=== PATIENT | female | born 1965 | race Caucasian/White ===

== ENCOUNTER 2024-07-07 15:33 | Inpatient (IN) | payer MEDICARE, MEDICAID, SELFPAY ==
[2024-07-07] VITALS (8 sets, daily range): BP systolic 125–193; BP diastolic 89–120; PULSE 71–89; RESP 18–158; TEMP 36.8–37.2; O2SAT 94–100
--- NOTE | 2024-07-07 15:55 | PC.NURSE ---
[place] FROM HOME, PER CAREGIVER PT IS ALTERED, LKW WAS 0900 THIS MORNING. FAMILY NOTICED FOUL SMELLING URINE YESTERDAY. EMS RULED OUT STROKE ON SCENE. HERE UPON ASSESSMENT, PT IS ALERT TO SELF ONLY, ABLE TO FOLLOW COMMANDS HAS EQUAL STRENGTH IN ALL FOUR EXTREMITIES. DURING TRIAGE ASSESSMENT PT BEGAN VOMITING. DENIES ANY PAIN CURRENTLY, POOR HISTORIAN. UNSURE WHY SHE IS HERE. AWAITING PROVIDER EVALUATION
--- NOTE | 2024-07-07 16:12 | EKG_ITS ---
[facility] Test Date: 2024-07-07 Pat Name: SOLOMON CLOUD Department: Room: - Gender: Female Vocational Training Instructor: : [id number] Requested By: Saundra De Dios Order Number: [id number] Reading MD: Saundra De Dios Measurements Intervals [place] Rate: 65 P: 50 MN: 137 QRS: 4 QRSD: 82 T: 42 QT: 421 QTc: 440 Interpretive Statements SINUS RHYTHM Compared to ECG 08/19/2021 12:26:59 T-wave abnormality no longer present /store/S0/[id number].pdf
--- NOTE | 2024-07-07 16:13 | XR_ITS ---
Examination: AP chest single view Technique: AP portable semiupright chest single view Exam date and time: July 07, 2024 at 1624 hrs. Comparison October 19, 2021 Indications: Difficulty breathing today. Findings: Opacity in the left base retrocardiac Right lung clear Mild prominence left ventricle Impression: Recommend lateral chest view follow-up to exclude pneumonia left base
--- NOTE | 2024-07-07 16:13 | XR_ITS ---
Examination: CT brain head without contrast. 2-D sagittal coronal reconstructions Date and time of exam:July 07, 2024 at 1812 hours Comparison December 03, 2021 INDICATIONS: Altered mental status today CTDI: vol (mGy):21.4 DLP: (mGycm):1005 Technique: Multiple CT axial sections of the brain have been obtained, 5 mm slice thickness. Contrast has not been administered. 2-D sagittal, coronal reconstructions have been obtained Low dose protocols were performed. One or more of the following dose reduction techniques were used; automated exposure control, adjustment of the mA and/or KV according to patient size, use of iterative reconstruction technique. Findings: Compared to December 03, 2021, again noted ventricular enlargement, asymmetric with the dilatation of the right occipital horn and encephalomalacia in the right occipital lobe No interval hemorrhage or mass effect Probable sebaceous cyst in the scalp on the left side posteriorly No cranial vault fracture IMPRESSION: No interval hemorrhage mass effect or midline shift As clinically warranted, repeat brain MRI follow-up would best assess for acute ischemic change
--- NOTE | 2024-07-07 16:14 | PD.EDAMS ---
Altered Mental Status RME/HPI General Chief Complaint: Altered Mental Status Stated Complaint: AMS Time Seen by Provider: 07/07/24 15:45 Arrival date/time: 07/07/24 15:33 RME / HPI RME / HPI narrative: 58-year-old female patient with significant history of hypertension hypothyroidism, was brought in by EMS for evaluation regarding altered mental status. Last well-known time was last night about 5 PM, when the licensed insurance sales agent arrived around 9 AM, today, patient was noted to be vomiting all over her bed and confused. Patient's been complaining of abdominal pain for the last 2 days. Patient normally ambulates with a walker. No fever was noted. On my initial evaluation patient is only alert to herself. Patient denies any other complaints no medication was taken prior to arrival. Related Data Home Medications ?Medication ?Instructions ?Recorded ?Confirmed atorvastatin 20 mg tablet 20 tab PO QDAY 08/19/21 10/05/21 calcium 600 mg (as 1 tab PO QDAY 08/19/21 10/05/21 carbonate)-vitamin D3 5 mcg (200 unit) tablet citalopram 40 mg tablet 40 tab PO QDAY 08/19/21 10/05/21 docusate sodium 100 mg capsule 1 cap PO QDAY 08/19/21 10/05/21 levothyroxine 88 mcg tablet 88 tab PO QDAY 08/19/21 10/05/21 loratadine 10 mg tablet 10 tab PO QDAY 08/19/21 10/05/21 oxybutynin chloride 5 mg tablet 5 tab PO BID 08/19/21 10/05/21 ergocalciferol (vitamin D2) 1,250 1 cap PO QWEEK 10/05/21 10/05/21 mcg (50,000 unit) capsule Allergies Allergy/AdvReac Type Severity Reaction Status Date / Time No Known Allergies Allergy Verified 07/07/24 15:53 Review of Systems Review of Systems ROS Unobtainable: unobtainable due to mental status ED Exam Narrative Physical exam: VITAL SIGNS: Reviewed. GENERAL APPEARANCE: Alert and oriented x 1 follows commands, no acute distress, HEAD AND FACE: Non-traumatic. ENT: PERRL, pink conjunctivitis, eyelid no trauma, Mucous membrane moist. NECK: Supple, nontender, no nuchal rigidity. CHEST: No tenderness, no crepitus, no paradoxical movement, no retractions. LUNGS: Clear, well ventilated, symmetric, no rales, no wheezing, no ronchi, no stridor, good breath sounds bilaterally. HEART: Regular rate, regular rhythm, no murmur, no gallops. ABDOMEN: Soft, positive bowel sounds, nondistended, no guarding, nontender, no rebound, no masses, RECTAL: Deferred. GENITAL: Deferred. NEUROLOGICAL: Gross motor function intact sensory function intact, Appropriate for age. MUSCULOSKELETAL: low back nontender, full range of motion. EXTREMITIES: Nontender, full range of motion. SKIN: Color pink, dry, no rash, no lacerations, no abrasions, no contusions. LYMPHATICS: Deferred. Course Quality Measures none Orders Category Date Time Status Admit to Inpatient Status Routine Admission 07/07/24 20:32 Active COVID-19 Screening Questionnaire NOW Care 07/07/24 19:26 Active Business Dean STAT Care 07/07/24 16:12 Active Continuous Pulse Oximetry STAT Care 07/07/24 16:12 Completed Decision to Admit X1 Care 07/07/24 19:26 Active EKG (ED ONLY) *Do not use* NOW Care 07/07/24 16:12 Completed In and Out Catheter X1PRN Care 07/07/24 16:12 Active Insert IV NOW Care 07/07/24 16:12 Active NPO STAT Care 07/07/24 16:12 Active Strict Intake and Output Routine Care 07/07/24 16:[address] abdomen pelvis wo con Stat Exams 07/07/24 17:[address] head/brain wo con Stat Exams 07/07/24 16:13 Completed EKG (ED Only) Stat Exams 07/07/24 16:12 Draft XR chest 1V SEPSIS PROTOCOL Stat Exams 07/07/24 16:13 Completed ABG [Arterial Blood Gas] Stat Lab 07/07/24 19:55 Completed Ammonia Stat Lab 07/07/24 20:02 Completed B-Type Natriuretic Peptide Stat Lab 07/07/24 16:37 Completed Blood Culture (Lab) Stat Lab 07/07/24 16:39 Received CBC Stat Lab 07/07/24 16:37 Completed Comprehensive Metabolic Panel Stat Lab 07/07/24 16:37 Completed Drug Screen,Urine Stat Lab 07/07/24 20:20 Completed Folate Stat Lab 07/07/24 20:34 Received Free T4 (Free Thyroxine) Stat Lab 07/07/24 20:02 Completed LDH (Lactate Dehydrogenase) Stat Lab 07/07/24 16:37 Completed Lactate (Lactic Acid) Stat Lab 07/07/24 16:37 Completed Lipase Stat Lab 07/07/24 16:37 Completed Magnesium Stat Lab 07/07/24 16:37 Completed Partial Thromboplastin Time Stat Lab 07/07/24 16:37 Completed Phosphorous Stat Lab 07/07/24 16:37 Completed Procalcitonin Stat Lab 07/07/24 16:37 Completed Prothrombin Time with INR Stat Lab 07/07/24 16:37 Completed TSH [Thyroid Stimulating Hormone] Stat Lab 07/07/24 20:02 Completed Troponin I Stat Lab 07/07/24 16:37 Completed Urinalysis Stat Lab 07/07/24 20:20 Completed Urine Culture Stat Lab 07/07/24 20:20 Received Vitamin B12 Stat Lab 07/07/24 20:34 Received LORazepam [Ativan Inj] Med 07/07/24 17:31 Discontinued 2 mg IVP X1 ONE Ondansetron Inj [Zofran Inj] Med 07/07/24 16:12 Discontinued 4 mg IV X1 ONE Ringers Lactated 1000 ml [Lactated Ringers] 1,000 ml Med 07/07/24 16:13 Discontinued IV 999 mls/hr Oxygen Delivery NOW RT 07/07/24 16:12 Active Vital Signs Vital signs: Vital Signs Temperature 99.0 F 07/07/24 15:44 Pulse Rate 89 07/07/24 15:44 Respiratory Rate 18 07/07/24 15:44 Blood Pressure 179/96 H 07/07/24 15:44 Pulse Oximetry (%) 94 L 07/07/24 15:44 Oxygen Delivery Method Nasal Cannula 07/07/24 15:44 Oxygen Flow Rate 2 07/07/24 15:44 Altered Mental Status MDM Narrative MDM Narrative:: 58-year-old female patient with significant history of hypertension hypothyroidism, was brought in by EMS for evaluation regarding altered mental status. Last well-known time was last night about 5 PM, when the licensed insurance sales agent arrived around 9 AM, today, patient was noted to be vomiting all over her bed and confused. Patient's been complaining of abdominal pain for the last 2 days. Patient normally ambulates with a walker. No fever was noted. On my initial evaluation patient is only alert to herself. Patient denies any other complaints no medication was taken prior to arrival. Patient CBC today came back unremarkable no leukocytosis. CMP came back unremarkable, EKG looks normal CT scan of the head came back unremarkable. I personally reviewed and interpreted the x-ray of this patient. There is no acute abnormalities found, no infiltrates no pneumothorax no hemothorax normal chest x-ray. Review of other structures was without significant abnormal findings also. I additionally reviewed the radiologist report and agree with the interpretation. CT scan of the abdomen pelvis came back normal with no acute pathology. Urinalysis no UTI. Patient received IV fluids, Zofran lorazepam with significant improvement of symptoms. Patient data External records reviewed:: None Clinical information provided by:: patient Social determinants that could affect healthcare access:: none Patient has the following chronic illnesses:: Hypertension How is presenting disease/condition affected by chronic disease/condition?: exacerbated by Evaluation data The following diagnostics were reviewed and interpreted by me:: lab results, radiology exam(s) and EKG tracing(s) Lab and/or radiology exams considered but not ordered:: None Interpretation Summary: EKG showed sinus rhythm, ventricular rate of 65 bpm, no ST segment elevation depression noted. Medications / Prescriptions Medications or Prescriptions considered but not ordered:: None Medication administrations:: Medication Administration History Acetaminophen (Acetaminophen 325 Mg Tablet) 650 mg PO Q6H PRN PRN Reason: PAIN OR FEVER > 101 Stop: 08/06/24 20:38 Hydralazine HCl (Hydralazine Inj 20 Mg/Ml Vial) 10 mg IV Q6H PRN PRN Reason: SBP>160 Stop: 08/06/24 20:44 Azithromycin 500 mg/ Sodium (Chloride) 250 mls @ 250 mls/hr IV QDAY [facility] Stop: 07/14/24 21:12 Azithromycin 500 mg/ Sodium (Chloride) 250 mls @ 250 mls/hr IV X1 ONE Stop: 07/07/24 22:29 Levothyroxine Sodium (Levothyroxine Sodium 88 Mcg Tablet) 88 mcg PO ACBR [facility] Stop: 08/07/24 05:59 Ondansetron HCl (Ondansetron Inj 2 Mg/Ml Inj 2 Ml) 4 mg IV Q6H PRN; Protocol PRN Reason: NAUSEA OR VOMITING Stop: 08/06/24 20:38 Sennosides (Senna Tablet) 2 tab PO BID PRN; Protocol PRN Reason: CONSTIPATION Stop: 08/06/24 20:38 Discontinued Medications Lactated Ringer's (Lactated Ringers) 1,000 mls @ 999 mls/hr IV .Q1H1M ONE Stop: 07/07/24 17:13 Last Infusion: 07/07/24 18:00 Dose: Infused Documented By: Admin: 07/07/24 17:00 Dose: 999 mls/hr Documented By: TM Lorazepam (Lorazepam 2 Mg/Ml Vial) 2 mg IVP X1 ONE Stop: 07/07/24 17:32 Last Admin: 07/07/24 17:39 Dose: 2 mg Documented By: TM Ondansetron HCl (Ondansetron Inj 2 Mg/Ml Inj 2 Ml) 4 mg IV X1 ONE; Protocol Stop: 07/07/24 16:13 Last Admin: 07/07/24 17:01 Dose: 4 mg Documented By: TM IV fluids, lorazepam, Zofran Consultations Consultation(s) initiated? (list below): No Diagnosis Differential diagnosis altered mental status: altered mental status, dementia and sepsis Most likely diagnosis given after review of the tests above:: Altered mental status Admission Indicated Admission indicated?: indicated Explain why admission is indicated or not indicated:: Patient is to be admitted for further management Admission Request Was there a request for admission?: Yes Admission Attestation Admission request attestation: Discussed case with [Dr lujan ] from Hospitalist service regarding admission. Discussed patients ED course, exam findings, labs, and radiology results. The Hospitalist [agrees] to accept the patient for admission. Disposition Plan Disposition Plan: Admit Discharge Plan Plan Patient Disposition: Admit Acute Care w/in Hospital Disposition Comment: Stable Problem List Clinical Impression: Altered mental status, Vomiting Patient/Caregiver Discharge Instructions Discharge Activity: activity as tolerated
[2024-07-07 16:46] LABS: Lactate (Lactic Acid) 1.5 mMol/L (0.4-2.0)
[2024-07-07 16:47] LABS: Basophils % (Auto) 1 % (0-2.5); Eosinophils # (Auto) 0.1 Thou/mm3 (0.0-0.5); Eosinophils % (Auto) 1 % (0-10); Hemoglobin 13.7 g/dL (12.0-16.0); Immature Granulocytes % (Auto) 0 % (0-0); Immature Granulocytes Auto 0.02 Thou/mm3 (0.00-0.00); Lymphocytes # (Auto) 1.6 Thou/mm3 (1.0-4.8); Lymphocytes % (Auto) 18 % (10-50); Mean Corpuscular HGB Conc 33.4 g/dl (31.0-37.0); Mean Corpuscular Hemoglobin 27.9 pg (25.0-35.0); Mean Corpuscular Volume 84 fL (80-100); Monocytes # (Auto) 0.4 Thou/mm3 (0.0-0.8); Monocytes % (Auto) 5 % (0-12); Neutrophils # (Auto) 6.4 Thou/mm3 (1.8-7.7); Neutrophils % (Auto) 76 % (37-80); Nucleated Red Blood Cell % 0 /100 WBC (0); Platelet Count 291 Thou/mm3 (140-440); RDW Standard Deviation 41.1 fL (36.4-46.3); Red Blood Count 4.91 Miln/mm3 (4.00-5.20); White Blood Count 8.5 Thou/mm3 (3.6-11.0)
[2024-07-07] MEDS: RINGERS LACTATED 1000 ML 1,000 ML 999 ML IV (17:00)
[2024-07-07] MEDS: ONDANSETRON INJ 2 MG/ML INJ 2 ML 4 MG IV (17:01)
--- NOTE | 2024-07-07 17:05 | XR_ITS ---
Examination: CT abdomen and pelvis without contrast. Coronal 3-D reconstructions. Sagittal 2-D reconstructions. Date and time of exam:July 07, 2024 at 1814 hours INDICATIONS: Vomiting abdominal pain today CTDI: vol (mGy): 16.3 DLP: (mGycm): 883 Technique: Axial images of the abdomen have been obtained, 3 mm slice thickness Intravenous contrast material has not been administered. Low dose protocols were performed. One or more of the following dose reduction techniques were used; automated exposure control, adjustment of the mA and/or KV according to patient size, use of iterative reconstruction technique. Findings: Retrocardiac gastric hernia No focal liver or splenic lesions Contracted gallbladder No pancreatic or adrenal mass. Small kidneys with moderate renal parenchymal scar formation No renal or ureteral calculi, no hydronephrosis Abdominal aortic calcification no aneurysmal dilatation Small lymph nodes in the right lower mesentery. Normal appendix 8mm fat-containing umbilical hernia No bowel obstruction No diverticulitis Absent uterus No adnexal mass No bladder mass or bladder calculi Prominent osteopenia with chronic osteoporotic compressions L2, L1, T12, healed left hip fracture IMPRESSION: Small kidneys with renal parenchymal scar formation, no hydronephrosis renal or ureteral calculi Normal appendix No bowel obstruction diverticulitis or free air Consider hepatobiliary sonography follow-up
[2024-07-07 17:10] LABS: Partial Thromboplastin Time 21.2 Seconds (22.0-36.0); Prothrombin Time 11.2 Seconds (9.0-12.2)
[2024-07-07 17:17] LABS: B-Type Natriuretic Peptide 22 pg/mL (0-100)
[2024-07-07 17:23] LABS: Alanine Aminotransferase 10 U/L (10-49); Albumin, Serum 4.4 gm/dL (3.4-4.8); Albumin/Globulin Ratio 1.6 (1.2-2.2); Alkaline Phosphatase 107 U/L (46-116); Anion Gap 8 (7-16); Aspartate Amino Transferase 14 U/L (0-34); BUN/Creatinine Ratio 16 Ratio (12-20); Bilirubin,Total 0.4 mg/dL (0.3-1.2); Blood Urea Nitrogen 14 mg/dL (9-23); Calcium 9.6 mg/dL (8.3-10.6); Calcium (Corrected) 9.6 mg/dL (8.5-10.1); Carbon Dioxide 25.8 mMol/L (20.0-31.0); Chloride 109 mMol/L (98-107); Creatinine (Component) 0.9 mg/dL (0.6-1.3); Globulin 2.8 gm/dL (2.3-3.5); Glucose 147 mg/dL (74-106); LDH (Lactate Dehydrogenase) 180 U/L (120-246); Lipase 31 U/L (12-53); Magnesium 1.9 mg/dL (1.6-2.6); Osmolality,Calculated 288 (275-295); Phosphorous 3.3 mg/dL (2.4-5.1); Potassium 4.1 mMol/L (3.4-5.1); Procalcitonin < 0.04 ng/ml (0.0-0.49); Sodium 143 mMol/L (136-145); Total Protein 7.2 gm/dL (5.7-8.2); Troponin I < 0.002 ng/mL (0.0-0.045); eGFR > 60 See Note
[2024-07-07] MEDS: LORazepam 2 MG/ML VIAL IVP (17:39)
--- NOTE | 2024-07-07 17:48 | PC.NURSE ---
called CT to update pt has been medicated to get img
--- NOTE | 2024-07-07 19:54 | EVENTNT_ITS ---
Documentation for date of: 07/07/24 Event Note Event Note: A 58-year-old female presented to the ER with the chief complaint of altered mental status. The last known well time was approximately 5 PM the previous evening. At 9 AM the following morning, her technical trainer found her confused and noted extensive vomiting in bed. The patient reported abdominal pain ongoing for the past two days. She normally ambulates with a walker and has had equilibrium issues since her prior brain cancer treatment. No fever was noted. 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 Surgical history includes hernia repair, hysterectomy, ORIF of left intertrochanteric hip fracture in 2017, and ORIF of displaced distal spiral fracture of the right tibia in 2021. In the ER, vital signs recorded as temp 99.0 F, HR 89, RR 18, BP 179/[address] head showed no interval hemorrhage, mass effect, or midline shift. CT abdomen demonstrated small kidneys with renal parenchymal scarring, without hydronephrosis or renal/ureteral calculi. Lab revealed WBC 8.5, Hb 13.7, Plt 291, Na 143, K 4.1, BUN 14, Cr 0.9, glucose 147, lactic acid 1.5, procalcitonin <0.04. The patient was admitted for further evaluation and management. Altered Mental Status #Assessment: - Acute confusion with unclear onset (last known well ~16 hrs prior). - Associated vomiting, abdominal pain x2 days. - No fever, stable vitals, non-toxic appearing. - CT head: No acute intracranial pathology. - Labs: Normal WBC, lactic acid, procalcitonin; electrolytes and renal function within normal limits. - History: Prior EXTENSION CLERK malignancy (astrocytoma s/p resection and radiation, currently in remission), alcohol abuse. #Plan: - Monitor neuro status closely (neuro checks q4h). - Pending UA, utox. - Check TFT. - MRI brain to evaluate for delayed radiation changes or recurrence. - EEG to rule out subclinical seizures if persistent AMS. - Thiamine supplementation empirically (r/o Wernicke's encephalopathy given alcohol history). - Review med list for potential [employer]ION CLERK depressants or interactions. - Continue supportive care: IV fluids, electrolyte monitoring, fall precautions.
[2024-07-07 20:04] LABS: Base Excess 2 (-3-3); HCO3 27 mEq/L (20-26); O2 Saturation 99 % (91-98); PCO2 41 mmHg (32.0-48.0); PO2 96 mmHg (83-108); pH, Arterial 7.42 (7.35-7.45)
[2024-07-07 20:05] LABS: Allen Test Not Performed; Inspired O2, VO2 Liters 2 L/min; Puncture Site Left Brachial
--- NOTE | 2024-07-07 20:15 | PC.NURSE ---
Resident in to see pt. Pt sleeping, difficult to aroused. Awaken, and said what but doesn't answer to any other questions.
--- NOTE | 2024-07-07 20:21 | PD.RESHP ---
Documentation for date of: 07/07/24 [facility] History of Present Illness History of present illness: The patient is a 58-year-old female, brought in by ambulance, by EMS from home, unable to give history due to mental status, most of the H&P completed by documentation reviewed. Attempted to reach patient's mother Niyah Collins who is the person to notify, multiple attempts were unsuccessful. Apparently caregiver was present earlier in the day and patient brought to ER, per caregiver family's foul-smelling urine, patient was found on the floor, unknown downtime, last well-known was 5 pm yesterday, per caregiver when she came in at 9 AM this morning, patient was noted to be vomiting all over her bed and confused. Per caregiver patient has been complaining of abdominal pain for the last 2 days, has a GCS of 15 of 15 and is ambulatory with a walker at her baseline. During triage assessment patient began vomiting, patient is a poor historian. At the time of evaluation in the ER, patient's blood pressure systolic in the 200s, GCS 10/15, eye-opening only to pain, localizes noxious stimulus well, able to move both upper and lower extremities on noxious stimulus, confused speech. No seizures were reported by ER staff. No documented history of fever. Initial vitals in the ER, 179/96, temp 99F, saturating 94% on 2 L nasal cannula, patient was 1 given 1 L NS bolus, and lorazepam 2 mg IV push x 1 due to agitation, and ondansetron 4 mg x 1 due to vomiting. Initial workup included CBC which is unremarkable, CHEM panel shows normal electrolytes and anion gap, glucose 147, normal lactic acid, normal kidney and liver function, normal ammonia levels, pending vitamin B12 folic acid levels, pending TSH and free T4. EKG shows sinus rhythm, CT abdomen pelvis shows bilateral small kidneys with renal parenchymal scar formation, no stones, healed left hip fracture, chronic osteoporotic compressions T12 L1-L2, head CT showed ventricular enlargement, asymmetrical dilation of right occipital horn and encephalomalacia in the right occipital lobe. Chest x-ray shows opacity left base retrocardiac, possible pneumonia. Brain MRI negative for acute infarct. Past medical history: From chart review: History of COPD, history of brain cancer anaplastic astrocytoma s/p resection in 2008. History of depression. History of hypothyroidism. Past surgical history: History of hip fracture surgical repair, ankle fracture. Family history: No pertinent family history Review of Systems Review of Systems ROS Unobtainable: unobtainable due to mental status Past Medical History Past Medical History NEUROLOGIC: Positive Neurological Disorders and Brain Tumor; Negative Seizures CARDIAC: Positive Cardiac Disorders, Hypercholesterolemia and Hypertension; Negative Congestive Heart Failure RESPIRATORY: Positive Chronic Obstructive Pulmonary Disease (COPD) and Asthma GASTROINTESTINAL: Positive Gastrointestinal Disorders and Hiatal Hernia GENITOURINARY: Negative Genitourinary Disorders or Renal Disease REPRODUCTIVE: Positive Previous Pregnancies MUSCULOSKELETAL: Positive Musculoskeletal Disorders, Arthritis and Fractures ENT: Positive Cataracts ENDOCRINE: Positive Endocrine Disorders and Hypothyroidism; Negative Diabetes Mellitus Type 1 or Diabetes Mellitus Type 2 HEMATOLOGIC: Negative Blood Disorders PSYCHO/SOCIAL: Positive Depression and Anxiety OTHER HISTORY: Positive Hospitalization, Falls, Chemotherapy, Radiation Therapy, Chicken Pox, Cancer and Ovarian Cancer; Negative Shingles, Blood Transfusions, Blood Transfusion Reaction, Anesthesia Reactions or MRSA Family History FAMILY HISTORY: Positive Family Respiratory Disorders, Family Cardiac Disorders, Family Cancer and Family Surgery; Negative Family Anesthesia Reaction Surgical History SURGICAL: Positive Thyroidectomy, Tonsillectomy, Throat Surgery and Hysterectomy Social History SMOKING STATUS: Smoker, status unknown SUBSTANCE USE: former substance user and methamphetamine Exam Vital Signs Temp Pulse Resp BP Pulse Ox O2 Del Method O2 Flow Rate 98.3 F 71 18 155/97 H 100 Room Air 2 07/07/24 18:28 07/07/24 18:28 07/07/24 18:28 07/07/24 18:28 07/07/24 18:28 07/07/24 18:28 07/07/24 16:12 Narrative Exam General: AOx0, drowsy, arousable only to noxious stimuli Skin: Intact, no cyanosis or edema noted. HEENT: Atraumatic/normocephalic, STEPAN, neck supple Heart: RRR, S1 and S2 without clicks or murmurs Lungs: Clear on auscultation bilaterally, no difficulty breathing Abdomen: Soft, nontender. Bowel sounds present . Vascular: Peripheral pulses palpable Neuro: No focal neurological deficits noted, but limited exam due to mental status, able to move both upper and lower extremities localizes pain well and spots no clear stimuli. Results: Labs 07/07/24 16:37 07/07/24 16:37 Labs: Short CBC 07/07/24 Range/Units 16:37 WBC 8.5 (3.6-11.0) Thou/mm3 Hgb 13.7 (12.0-16.0) g/dL Hct 41.0 (36.0-46.0) % Plt Count 291 (140-440) Thou/mm3 BMP 07/07/24 16:37 Sodium 143 Potassium 4.1 Chloride 109 H Carbon Dioxide 25.8 BUN 14 Creatinine 0.9 Glucose 147 H Calcium 9.6 Cardiac Enzymes 07/07/24 Range/Units 16:37 Troponin I < 0.002 (0.0-0.045) ng/mL Liver Function 07/07/24 Range/Units 16:37 Total Bilirubin 0.4 (0.3-1.2) mg/dL AST 14 (0-34) U/L ALT 10 (10-49) U/L Alkaline Phosphatase 107 (46-116) U/L Albumin 4.4 (3.4-4.8) gm/dL ABG Interpretation ABG results: 07/07/24 19:55 ABG pH 7.42 ABG pCO2 41 ABG pO2 96 ABG HCO3 27 H ABG O2 Saturation 99 H ABG Base Excess 2 Quality Measures Quality Measures VTE prophylaxis Medications Home Medications and Allergies Home Medications ?Medication ?Instructions ?Recorded ?Confirmed ?Type atorvastatin 20 mg tablet 20 tab PO QDAY 08/19/21 10/05/21 History calcium 600 mg (as 1 tab PO QDAY 08/19/21 10/05/21 History carbonate)-vitamin D3 5 mcg (200 unit) tablet citalopram 40 mg tablet 40 tab PO QDAY 08/19/21 10/05/21 History docusate sodium 100 mg capsule 1 cap PO QDAY 08/19/21 10/05/21 History levothyroxine 88 mcg tablet 88 tab PO QDAY 08/19/21 10/05/21 History loratadine 10 mg tablet 10 tab PO QDAY 08/19/21 10/05/21 History oxybutynin chloride 5 mg tablet 5 tab PO BID 08/19/21 10/05/21 History ergocalciferol (vitamin D2) 1,250 1 cap PO QWEEK 10/05/21 10/05/21 History mcg (50,000 unit) capsule Allergies Allergy/AdvReac Type Severity Reaction Status Date / Time No Known Allergies Allergy Verified 07/07/24 15:53 Visit Medications Discontinued Medications Lactated Ringer's (Lactated Ringers) 1,000 mls @ 999 mls/hr IV .Q1H1M ONE Stop: 07/07/24 17:13 Last Admin: 07/07/24 17:00 Dose: 999 mls/hr Lorazepam (Lorazepam 2 Mg/Ml Vial) 2 mg IVP X1 ONE Stop: 07/07/24 17:32 Last Admin: 07/07/24 17:39 Dose: 2 mg Ondansetron HCl (Ondansetron Inj 2 Mg/Ml Inj 2 Ml) 4 mg IV X1 ONE; Protocol Stop: 07/07/24 16:13 Last Admin: 07/07/24 17:01 Dose: 4 mg Assessment & Plan Plan The patient is a 58-year-old female, brought in by ambulance, by EMS from home, unable to give history due to mental status, most of the H&P completed by documentation reviewed. Attempted to reach patient's mother Niyah Collins who is the person to notify, multiple attempts were unsuccessful. Apparently caregiver was present earlier in the day and patient brought to ER, per caregiver family's foul-smelling urine, patient was found on the floor, unknown downtime, last well-known was 5 pm yesterday, per caregiver when she came in at 9 AM this morning, patient was noted to be vomiting all over her bed and confused. Per caregiver patient has been complaining of abdominal pain for the last 2 days, has a GCS of 15 of 15 and is ambulatory with a walker at her baseline. During triage assessment patient began vomiting, patient is a poor historian. At the time of evaluation in the ER, patient's blood pressure systolic in the 200s, GCS 10/15, eye-opening only to pain, localizes noxious stimulus well, able to move both upper and lower extremities on noxious stimulus, confused speech. No seizures were reported by ER staff. No documented history of fever. Initial vitals in the ER, 179/96, temp 99F, saturating 94% on 2 L nasal cannula, patient was 1 given 1 L NS bolus, and lorazepam 2 mg IV push x 1 due to agitation, and ondansetron 4 mg x 1 due to vomiting. Initial workup included CBC which is unremarkable, CHEM panel shows normal electrolytes and anion gap, glucose 147, normal lactic acid, normal kidney and liver function, normal ammonia levels, pending vitamin B12 folic acid levels, pending TSH and free T4. EKG shows sinus rhythm, CT abdomen pelvis shows bilateral small kidneys with renal parenchymal scar formation, no stones, healed left hip fracture, chronic osteoporotic compressions T12 L1-L2, head CT showed ventricular enlargement, asymmetrical dilation of right occipital horn and encephalomalacia in the right occipital lobe. Chest x-ray shows opacity left base retrocardiac, possible pneumonia. Brain MRI negative for acute infarct. Past medical history: From chart review: History of COPD, history of brain cancer anaplastic astrocytoma s/p resection in 2008. History of depression. History of hypothyroidism. Past surgical history: History of hip fracture surgical repair, ankle fracture. Family history: No pertinent family history #Acute encephalopathy?toxic versus metabolic #Vomiting #Possible pneumonia Altered mental status with multiple episodes of vomiting, reportedly patient has a GCS of 15/15 and is ambulatory with a walker at her baseline, no GCS 10/15, responding only to noxious stimuli, able to move both her upper and lower extremities in response to pain, no focal neurological deficits noted, unable to rule out overdose, the patient has normal sized pupils. Patient did receive 1 dose of lorazepam prior to assessment due to agitation. CT head and MRI brain ruled out acute infarct, or hemorrhage, but did show encephalomalacia and asymmetrical ventricular dilation, both lateral ventricles and third ventricle dilated, likely chronic finding, patient had a history of astrocytoma, brain neoplasm s/p resection in 2008. No documented history of stroke. Chest x-ray is concerning for early pneumonia. Possible differentials also include hypertensive encephalopathy versus myxedema coma, follow labs. ? Will order azithromycin, flu testing and urinalysis. Holding off on antibiotics at this point, as no fever or leukocytosis and normal lactic acid and Pro-Alex ? Garcia's catheter ordered, follow urinalysis and urine tox screen ? Neurology consult to Dr. Flaherty in place ? Follow thiamine and folate levels ? Zofran as needed #History of hypothyroidism Possible differentials for altered mental status may include poorly controlled hypothyroidism, ordered thyroid function test, rule out myxedema coma. Clinical features against myxedema coma include lack of hypothermia and hypotension or bradycardia respiratory failure. ?Resume home medications, follow-up thyroid function test #History of fall #Rule out rhabdo Per RN, apparently patient was found on the floor, unknown downtime. Received 1 L IV fluid bolus. ? Ordered CPK, follow creatinine kinase #Hypertensive urgency Systolic blood pressure in the 200s at the time of my evaluation, initial blood pressure on arrival in the 170s. ? IV hydralazine 10 mg every 6 hourly as needed for SBP more than 160 #History of COPD No wheezing at the time of evaluation, maintaining oxygen saturation well on room air. ? Consider nebulizations if respiratory distress Plan of care discussed with my attending Dr. Julio C Holcomb PGY2 Attending Provider Attestation/Addendum Pt was evaluated and plan formulated together with the housestaff team. I have reviewed the residents note above and agree with most of its content. Please refer to the residents note for additional details.
[2024-07-07 20:33] LABS: Ammonia 19 uMol/L (11-32)
--- NOTE | 2024-07-07 20:43 | PC.NURSE ---
awaiting for pharmacy to be done.
[2024-07-07 20:56] LABS: Free T4 (Free Thyroxine) 1.78 ng/dL (0.89-1.76); Thyroid Stimulating Hormone 0.16 uIU/mL (0.55-4.78)
[2024-07-07 21:00] LABS: Collection Type, Urine Clean Catch
[2024-07-07 21:03] LABS: Bilirubin,Urine Negative (Negative); Blood,Urine Negative (Negative); Clarity,Urine Clear (Clear/Hazy); Color,Urine Lt-Yellow (Lt Yel-Yel); Glucose, Urine Negative (Negative); Hyaline Casts,Urine < 1 /hpf (0-1); Ketones,Urine Negative (Negative); Leukocyte Esterase,Urine Negative (Negative); Nitrite,Urine Negative (Negative); PH,Urine 6.5 (5.0-7.0); Protein,Urine Negative (Neg - Trace); RBC,Urine 3 /hpf (0-3); Specific Gravity,Urine 1.016 (1.001-1.035); Squamous Epithelial Cell,Urine 2 /hpf (0-5); Urobilinogen,Urine Negative mg/dL (0.0-1.0); WBC,Urine 3 /hpf (0-5)
[2024-07-07 21:06] LABS: Creatine Kinase 47 U/L (34-171)
[2024-07-07 21:10] LABS: Amphetamine/Methamp Scrn,U Negative (Negative); Barbiturate Screen,Urine Negative (Negative); Benzodiazepines Screen,Urine Negative (Negative); Benzoylecgonine Screen, Ur Negative (Negative); Fentanyl Screen,Urine Negative (Negative); Opiate Screen,Urine Negative (Negative); THC Screen,Urine Negative (Negative)
[2024-07-07] MEDS: AZITHROMYCIN INJ 500 MG in SODIUM CHLORIDE 0.9% 250 ML 250 ML 250 MG IV (21:56)
[2024-07-08] VITALS (7 sets, daily range): BP systolic 127–179; BP diastolic 87–99; PULSE 66–92; RESP 15–96; TEMP 36.2–36.9; O2SAT 96–100
--- NOTE | 2024-07-08 00:30 | PC.NURSE ---
Dr. Tracy saw patient at bedside, patient failed nurse swallow evaluation, to keep patient NPO. Patient remains very lethargic but responds to pain shaking and painful stimuli.
[2024-07-08 05:57] LABS: Basophils % (Auto) 0 % (0-2.5); Eosinophils % (Auto) 1 % (0-10); Hematocrit 35.4 % (36.0-46.0); Hemoglobin 11.7 g/dL (12.0-16.0); Immature Granulocytes % (Auto) 0 % (0-0); Immature Granulocytes Auto 0.02 Thou/mm3 (0.00-0.00); Lymphocytes # (Auto) 2.1 Thou/mm3 (1.0-4.8); Lymphocytes % (Auto) 25 % (10-50); Mean Corpuscular HGB Conc 33.1 g/dl (31.0-37.0); Mean Corpuscular Hemoglobin 27.5 pg (25.0-35.0); Mean Corpuscular Volume 83 fL (80-100); Monocytes # (Auto) 0.6 Thou/mm3 (0.0-0.8); Monocytes % (Auto) 7 % (0-12); Neutrophils # (Auto) 5.7 Thou/mm3 (1.8-7.7); Neutrophils % (Auto) 67 % (37-80); Nucleated Red Blood Cell % 0 /100 WBC (0); Platelet Count 291 Thou/mm3 (140-440); RDW Standard Deviation 40.6 fL (36.4-46.3); Red Blood Count 4.25 Miln/mm3 (4.00-5.20); White Blood Count 8.5 Thou/mm3 (3.6-11.0)
[2024-07-08 06:11] LABS: Prothrombin Time 11.4 Seconds (9.0-12.2)
[2024-07-08 06:50] LABS: Albumin, Serum 3.9 gm/dL (3.4-4.8); Albumin/Globulin Ratio 1.8 (1.2-2.2); Alkaline Phosphatase 90 U/L (46-116); Anion Gap 9 (7-16); Aspartate Amino Transferase 10 U/L (0-34); BUN/Creatinine Ratio 22 Ratio (12-20); Bilirubin,Total 0.4 mg/dL (0.3-1.2); Blood Urea Nitrogen 13 mg/dL (9-23); Calcium (Corrected) 9.1 mg/dL (8.5-10.1); Carbon Dioxide 26.5 mMol/L (20.0-31.0); Cardiac Risk Estimate 2.5 RATIO (3.7-5.6); Chloride 109 mMol/L (98-107); Cholesterol 135 mg/dL (132-200); Creatinine (Component) 0.6 mg/dL (0.6-1.3); Globulin 2.2 gm/dL (2.3-3.5); Glucose 99 mg/dL (74-106); HDL Cholesterol 55 mg/dL (40-60); LDL Cholesterol,Calculated 62 mg/dL (0-130); Magnesium 1.8 mg/dL (1.6-2.6); Osmolality,Calculated 286 (275-295); Phosphorous 3.6 mg/dL (2.4-5.1); Potassium 3.5 mMol/L (3.4-5.1); Sodium 144 mMol/L (136-145); Total Protein 6.1 gm/dL (5.7-8.2); Triglycerides 88 mg/dL (30-150); eGFR > 60 See Note
[2024-07-08 06:57] LABS: Alanine Aminotransferase 7 U/L (10-49)
[2024-07-08] MEDS: ONDANSETRON INJ 2 MG/ML INJ 2 ML 4 MG IV (08:07)
[2024-07-08] MEDS: Magnesium Sulfate 2 GM Ivpb 2 GM/50 ML BAG IV (08:42)
--- NOTE | 2024-07-08 11:04 | ESPR_ITS ---
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 At baseline, walks with walker and A&Ox3. 07/08: No acute overnight events noted. Seen and examined at bedside, and patient is alert and oriented x 3. She does not have any complaints at this time including nausea, vomiting, or abdominal pain. Spoke to brother who is also at bedside and updated regarding findings and current plans. He was able to contact caregiver who states that patient's levothyroxine dosage was changed approximately 2 months ago from 88 mcg to 100 mcg. Exam Vital Signs Temp Pulse Resp BP Pulse Ox O2 Del Method O2 Flow Rate 97.8 F 66 15 154/95 H 100 Nasal Cannula 2 07/08/24 07:34 07/08/24 07:34 07/08/24 07:34 07/08/24 07:34 07/08/24 07:34 07/08/24 07:34 07/07/24 23:00 Narrative Exam General: AOx3, laying comfortably in bed, answers questions, follows some commands HEENT: NC/AT, mucous membranes moist, bilateral sclera anicteric Cardiovascular: regular rate and rhythm, S1/S2 present, no murmurs appreciated Pulmonary: clear to auscultation bilaterally, no rales/rhonchi/wheezes Abdominal: soft, non-tender, non-distended, no rebound/guarding, normal bowel sounds present Musculoskeletal: normal ROM, no peripheral edema Skin: warm and dry, intact, no rashes Neuro: CN II-XII intact, no focal deficits right upper and lower extremities Objective Labs 07/09/24 05:21 07/09/24 05:21 Labs: Laboratory Results - last 24 hr 07/07/24 07/07/24 07/07/24 16:37 19:55 20:02 WBC 8.5 RBC 4.91 Hgb 13.7 Hct 41.0 MCV 84 MCH 27.9 MCHC 33.4 RDW Std Deviation 41.1 Plt Count 291 Neut % (Auto) 76 Lymph % (Auto) 18 [place] % (Auto) 5 Eos % (Auto) 1 Baso % (Auto) 1 Neut # (Auto) 6.4 Lymph # (Auto) 1.6 [place] # (Auto) 0.4 Eos # (Auto) 0.1 Baso # (Auto) 0.0 Immature Gran # (Auto) 0.02 H Absolute Nucleated RBC 0.00 Immature Gran % 0 Nucleated RBC % 0 PT 11.2 INR 1.0 APTT 21.2 L Puncture Site Left Brachial ABG pH 7.42 ABG pCO2 41 ABG pO2 96 ABG HCO3 27 H ABG O2 Saturation 99 H ABG Base Excess 2 Oxygen Liter Flow 2 Sodium 143 Potassium 4.1 Chloride 109 H Carbon Dioxide 25.8 Anion Gap 8 BUN 14 Creatinine 0.9 Estim Creat Clear Calc Not Performed. eGFR > 60 BUN/Creatinine Ratio 16 Glucose 147 H Calculated Osmolality 288 Lactic Acid 1.5 Calcium 9.6 Corrected Calcium 9.6 Phosphorus 3.3 Magnesium 1.9 Total Bilirubin 0.4 AST 14 ALT 10 Alkaline Phosphatase 107 Ammonia 19 Lactate Dehydrogenase 180 Total Creatine Kinase Troponin I < 0.002 B-Natriuretic Peptide 22 Total Protein 7.2 Albumin 4.4 Globulin 2.8 Albumin/Globulin Ratio 1.6 Triglycerides Cholesterol LDL Cholesterol, Calc HDL Cholesterol Cholesterol/HDL Ratio Lipase 31 Procalcitonin < 0.04 TSH 0.16 L Free T4 1.78 H Ur Collection Type Urine Color Urine Clarity Urine pH Ur Specific Ida Urine Protein Urine Glucose (UA) Urine Ketones Urine Blood Urine Nitrite Urine Bilirubin Urine Urobilinogen (Auto) Ur Leukocyte Esterase Urine RBC Urine WBC Ur Squamous Epith Cells Urine Bacteria Hyaline Casts Urine Opiates Screen Urine Fentanyl Screen Ur Barbiturates Screen U Amphetamin/Meth Scrn U Benzodiazepines Scrn U Cocaine Metab Screen U Marijuana (THC) Screen 07/07/24 07/07/24 07/08/24 20:20 20:34 04:59 WBC 8.5 RBC 4.25 Hgb 11.7 L D Hct 35.4 L MCV 83 MCH 27.5 MCHC 33.1 RDW Std Deviation 40.6 Plt Count 291 Neut % (Auto) 67 Lymph % (Auto) 25 [place] % (Auto) 7 Eos % (Auto) 1 Baso % (Auto) 0 Neut # (Auto) 5.7 Lymph # (Auto) 2.1 [place] # (Auto) 0.6 Eos # (Auto) 0.0 Baso # (Auto) 0.0 Immature Gran # (Auto) 0.02 H Absolute Nucleated RBC 0.00 Immature Gran % 0 Nucleated RBC % 0 PT 11.4 INR 1.0 APTT Puncture Site ABG pH ABG pCO2 ABG pO2 ABG HCO3 ABG O2 Saturation ABG Base Excess Oxygen Liter Flow Sodium 144 Potassium 3.5 D Chloride 109 H Carbon Dioxide 26.5 Anion Gap 9 BUN 13 Creatinine 0.6 Estim Creat Clear Calc Not Performed. eGFR > 60 BUN/Creatinine Ratio 22 H Glucose 99 Calculated Osmolality 286 Lactic Acid Calcium 9.0 Corrected Calcium 9.1 Phosphorus 3.6 Magnesium 1.8 Total Bilirubin 0.4 AST 10 ALT 7 L Alkaline Phosphatase 90 Ammonia Lactate Dehydrogenase Total Creatine Kinase 47 Troponin I B-Natriuretic Peptide Total Protein 6.1 Albumin 3.9 D Globulin 2.2 L Albumin/Globulin Ratio 1.8 Triglycerides 88 Cholesterol 135 LDL Cholesterol, Calc 62 HDL Cholesterol 55 Cholesterol/HDL Ratio 2.5 L Lipase Procalcitonin TSH Free T4 Ur Collection Type Clean Catch Urine Color Lt-Yellow Urine Clarity Clear Urine pH 6.5 Ur Specific [place] 1.016 Urine Protein Negative Urine Glucose (UA) Negative Urine Ketones Negative Urine Blood Negative Urine Nitrite Negative Urine Bilirubin Negative Urine Urobilinogen (Auto) Negative Ur Leukocyte Esterase Negative Urine RBC 3 Urine WBC 3 Ur Squamous Epith Cells 2 Urine Bacteria None Hyaline Casts < 1 Urine Opiates Screen Negative Urine Fentanyl Screen Negative Ur Barbiturates Screen Negative U Amphetamin/Meth Scrn Negative U Benzodiazepines Scrn Negative U Cocaine Metab Screen Negative U Marijuana (THC) Screen Negative ABG Interpretation ABG results: 07/07/24 19:55 ABG pH 7.42 ABG pCO2 41 ABG pO2 96 ABG HCO3 27 H ABG O2 Saturation 99 H ABG Base Excess 2 Quality Measures Quality Measures none Assessment & Plan Assessment Current Active Medications: Generic Name Dose Route Start Last Admin Trade Name Freq PRN Reason Stop Dose Admin Acetaminophen 650 mg 07/07/24 20:39 Acetaminophen 325 Mg Tablet PO 08/06/24 20:38 Q6H PRN PAIN OR FEVER > 101 Hydralazine HCl 10 mg 07/07/24 20:32 Hydralazine Inj 20 Mg/Ml Vial IV 08/06/24 20:44 Q6H PRN SBP>160 Ondansetron HCl 4 mg 07/07/24 20:39 07/08/24 08:07 Ondansetron Inj 2 Mg/Ml Inj 2 Ml IV 08/06/24 20:38 4 mg Q6H PRN Administration NAUSEA OR VOMITING Protocol Sennosides 2 tab 07/07/24 20:39 Senna Tablet PO 08/06/24 20:38 BID PRN CONSTIPATION Protocol Plan Carol Lucero is a 58-y/o female with PMHx HLD, hypothyroidism, 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 At baseline, walks with walker and A&Ox3. #Acute encephalopathy, hypertensive versus medication induced #Hypertensive urgency BP as high as 193/120 with no history of hypertension that may have caused nausea/vomiting and encephalopathy. Levothyroxine noted to be increased 2 months ago and may have contributed to clinical picture as well. Ammonia negative, UA negative, U tox negative lactic acid and Pro-Alex negative without fever or leukocytosis (azithromycin discontinued). ? Neurology consulted, appreciate recommendations ? Follow-up B12 and folate ? Zofran as needed #History of hypothyroidism Dosage of levothyroxine increased in last 2 months and presents with N/V and hypertensive urgency. TSH 0.16 and free T4 1.78, with previous TSH noted to be 8.55 -> thus, likely overtitrated and will hold for now. ? Hold levothyroxie for now ? Consider curbside consult lift driver, Dr. Chin, tomorrow #History of fall #Rhabdomyolysis ruled-out Per RN, apparently patient was found on the floor, unknown downtime. Received 1 L IV fluid bolus. ? CK within normal limits #History of COPD No wheezing at the time of evaluation, maintaining oxygen saturation well on room air. ? Consider nebulizations if respiratory distress Hospital management: Disposition: pending neurology recommendations Fluids: not indicated Diet: regular Lines: PIV DVT prophylaxis: SCDs GI prophylaxis: not indicated Garcia: placed CODE STATUS: full code ----- Plan discussed with attending physician Dr. Dago Adair MD PGY-1 Internal Medicine Attending Provider Attestation/Addendum I reviewed labs, imaging, EKG, home medications and prior available records. Face to face evaluation was performed by me. I have personally examined the patient and discussed assessment and plan with the IM team. I reviewed the resident note and agree with the plan with exceptions as below. Acute encephalopathy, improved Hypertensive encephalopathy Dehydration determined by physical examination Uncontrolled hypertension Hypothyroidism Abnormal TSH/T4 CT head is negative for acute changes Consulted neurology for further recommendations IV hydralazine as needed IV fluids Hold levothyroxine. Touch base with endocrinology
--- NOTE | 2024-07-08 12:46 | PC.SS ---
Patient Carol Lucero is a 58 Year old female admitted for AMS. SS met with patient at bedside to discuss discharge plan. Patient utilizes a Walker and Wheelchair to assist with ambulation. Prior to admission patient was able to complete ADL's independently. Patient reports his choice of Pharmacy is [facility]. Patient's director of medicare at bedside and reports she is patient's [facility] provider and patient gets 150 Hrs a month Patient?s medical surrogate decision maker is patient's brother, Sami Lucero [phone]. Patient?s PCP is Alex Bourgeois. At time of discharge patient will discharge home. Care provider or patient's brother will transport patient home. Next of Kin: Sami Mendoza [phone] D/C Plan: Home
[2024-07-08 13:16] LABS: Cocci Serology, IgM Negative (Negative)
[2024-07-08] MEDS: NICOTINE PATCH 14 MG/24 HR PATCH.TD24 TOP (14:22)
[2024-07-08 21:30] LABS: Folate 18.03 ng/mL (>5.38); Vitamin B12 514 pg/mL (211-911)
[2024-07-09] VITALS (8 sets, daily range): BP systolic 137–150; BP diastolic 89–100; PULSE 64–95; RESP 16–97; TEMP 36.1–37.2; O2SAT 94–97; BMI 13.0
[2024-07-09 05:39] LABS: Basophils % (Auto) 1 % (0-2.5); Eosinophils # (Auto) 0.2 Thou/mm3 (0.0-0.5); Eosinophils % (Auto) 3 % (0-10); Hematocrit 36.6 % (36.0-46.0); Hemoglobin 11.9 g/dL (12.0-16.0); Immature Granulocytes % (Auto) 0 % (0-0); Immature Granulocytes Auto 0.02 Thou/mm3 (0.00-0.00); Lymphocytes # (Auto) 2.1 Thou/mm3 (1.0-4.8); Lymphocytes % (Auto) 30 % (10-50); Mean Corpuscular HGB Conc 32.5 g/dl (31.0-37.0); Mean Corpuscular Hemoglobin 27.9 pg (25.0-35.0); Mean Corpuscular Volume 86 fL (80-100); Monocytes # (Auto) 0.6 Thou/mm3 (0.0-0.8); Monocytes % (Auto) 8 % (0-12); Neutrophils % (Auto) 58 % (37-80); Nucleated Red Blood Cell % 0 /100 WBC (0); Platelet Count 265 Thou/mm3 (140-440); RDW Standard Deviation 41.1 fL (36.4-46.3); Red Blood Count 4.27 Miln/mm3 (4.00-5.20); White Blood Count 6.9 Thou/mm3 (3.6-11.0)
[2024-07-09 06:15] LABS: Alanine Aminotransferase 8 U/L (10-49); Albumin, Serum 3.8 gm/dL (3.4-4.8); Albumin/Globulin Ratio 1.6 (1.2-2.2); Alkaline Phosphatase 82 U/L (46-116); Anion Gap 9 (7-16); Aspartate Amino Transferase 12 U/L (0-34); BUN/Creatinine Ratio 15 Ratio (12-20); Bilirubin,Total 0.3 mg/dL (0.3-1.2); Blood Urea Nitrogen 9 mg/dL (9-23); Calcium 9.5 mg/dL (8.3-10.6); Calcium (Corrected) 9.7 mg/dL (8.5-10.1); Carbon Dioxide 27.1 mMol/L (20.0-31.0); Chloride 106 mMol/L (98-107); Creatinine (Component) 0.6 mg/dL (0.6-1.3); Globulin 2.4 gm/dL (2.3-3.5); Glucose 94 mg/dL (74-106); Osmolality,Calculated 281 (275-295); Phosphorous 3.8 mg/dL (2.4-5.1); Potassium 3.6 mMol/L (3.4-5.1); Sodium 142 mMol/L (136-145); Total Protein 6.2 gm/dL (5.7-8.2); eGFR > 60 See Note
[2024-07-09] MEDS: NICOTINE PATCH 14 MG/24 HR PATCH.TD24 TOP (08:08)
[2024-07-09] MEDS: ACETAMINOPHEN 325 MG TABLET 650 MG PO ×2 (08:10→14:44)
--- NOTE | 2024-07-09 11:30 | PD.RESPRO ---
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 At baseline, walks with walker and A&Ox3. 07/08: No acute overnight events noted. Seen and examined at bedside, and patient is alert and oriented x 3. She does not have any complaints at this time including nausea, vomiting, or abdominal pain. Spoke to brother who is also at bedside and updated regarding findings and current plans. He was able to contact caregiver who states that patient's levothyroxine dosage was changed approximately 2 months ago from 88 mcg to 100 mcg. 07/09: No acute overnight events noted. Seen and examined at bedside, patient is alert and oriented to self, birthdate, and place. She does state she feels nauseous, though antiemetics have not been given and no reported episodes of emesis. Otherwise, she does not have any complaints at this time. Exam Vital Signs Temp Pulse Resp BP Pulse Ox O2 Del Method O2 Flow Rate 97.0 F 75 16 137/89 H 94 L Room Air 2 07/09/24 08:00 07/09/24 08:17 07/09/24 08:17 07/09/24 08:00 07/09/24 08:00 07/09/24 08:00 07/07/24 23:00 Objective Labs 07/10/24 05:10 07/10/24 05:10 Labs: Laboratory Results - last 24 hr 07/07/24 07/08/24 07/09/24 20:34 04:59 05:21 WBC 6.9 RBC 4.27 Hgb 11.9 L Hct 36.6 MCV 86 MCH 27.9 MCHC 32.5 RDW Std Deviation 41.1 Plt Count 265 Neut % (Auto) 58 Lymph % (Auto) 30 [place] % (Auto) 8 Eos % (Auto) 3 Baso % (Auto) 1 Neut # (Auto) 4.0 Lymph # (Auto) 2.1 [place] # (Auto) 0.6 Eos # (Auto) 0.2 Baso # (Auto) 0.0 Immature Gran # (Auto) 0.02 H Absolute Nucleated RBC 0.00 Immature Gran % 0 Nucleated RBC % 0 Sodium 142 Potassium 3.6 Chloride 106 Carbon Dioxide 27.1 Anion Gap 9 BUN 9 Creatinine 0.6 Estim Creat Clear Calc Not Performed. eGFR > 60 BUN/Creatinine Ratio 15 Glucose 94 Calculated Osmolality 281 Calcium 9.5 Corrected Calcium 9.7 Phosphorus 3.8 Magnesium 2.0 Total Bilirubin 0.3 AST 12 ALT 8 L Alkaline Phosphatase 82 Total Protein 6.2 Albumin 3.8 Globulin 2.4 Albumin/Globulin Ratio 1.6 Vitamin B12 514 Folate 18.03 Coccidioides IgM Ab Negative ABG Interpretation ABG results: 07/07/24 19:55 ABG pH 7.42 ABG pCO2 41 ABG pO2 96 ABG HCO3 27 H ABG O2 Saturation 99 H ABG Base Excess 2 Quality Measures Quality Measures none Assessment & Plan Assessment Current Active Medications: Generic Name Dose Route Start Last Admin Trade Name Freq PRN Reason Stop Dose Admin Acetaminophen 650 mg 07/07/24 20:39 07/09/24 08:10 Acetaminophen 325 Mg Tablet PO 08/06/24 20:38 650 mg Q6H PRN Administration PAIN OR FEVER > 101 Hydralazine HCl 10 mg 07/07/24 20:32 Hydralazine Inj 20 Mg/Ml Vial IV 08/06/24 20:44 Q6H PRN SBP>160 Nicotine 14 mg 07/08/24 14:15 07/09/24 08:08 Nicotine Patch 14 Mg/24 Hr Patch.Td24 TOP 08/07/24 14:14 14 mg QDAY MIKHAIL Administration Ondansetron HCl 4 mg 07/07/24 20:39 07/08/24 08:07 Ondansetron Inj 2 Mg/Ml Inj 2 Ml IV 08/06/24 20:38 4 mg Q6H PRN Administration NAUSEA OR VOMITING Protocol Sennosides 2 tab 07/07/24 20:39 Senna Tablet PO 08/06/24 20:38 BID PRN CONSTIPATION Protocol Plan Carol Lucero is a 58-y/o female with PMHx HLD, hypothyroidism, 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 At baseline, walks with walker and A&Ox3. #Acute encephalopathy, hypertensive versus medication induced #Hypertensive urgency BP as high as 193/120 with no history of hypertension that may have caused nausea/vomiting and encephalopathy. Levothyroxine dosages noted to be increased 2 months ago and may have contributed to clinical picture as well given elevated T4 and low TSH. Ammonia negative, UA negative, B12 and folate wnl, U tox negative lactic acid and Pro-Alex negative without fever or leukocytosis (azithromycin discontinued). ? Neurology consulted, appreciate recommendations ? Follow-up MRI ? Follow-up EEG ? Zofran as needed #History of hypothyroidism Dosage of levothyroxine increased in last 2 months and presents with N/V and hypertensive urgency. On this admission TSH 0.16 and free T4 1.78, with previous TSH noted to be 8.55 -> thus, likely overtitrated and will hold for now. Spoke to director of teacher education over phone, and increase in dosage of levothyroxine may be component to presentation but unlikely to be main reason. ? Hold levothyroxine for now, may restart tomorrow, 07/10 ? Frankbside consult with director of teacher education, appreciate recommendations ? Recommend to restart levothyroxine after holding for 1-2 days at dosage higher than when TSH was 8 #History of fall #Rhabdomyolysis ruled-out Per RN, apparently patient was found on the floor, unknown downtime. Received 1 L IV fluid bolus. ? CK within normal limits #History of COPD No wheezing at the time of evaluation, maintaining oxygen saturation well on room air. ? Consider nebulizations if respiratory distress Hospital management: Disposition: pending neurology recommendations Fluids: not indicated Diet: regular Lines: PIV DVT prophylaxis: SCDs GI prophylaxis: not indicated Garcia: placed CODE STATUS: full code ----- Plan discussed with attending physician Dr. Dago Adair MD PGY-1 Internal Medicine Attending Provider Attestation/Addendum I reviewed labs, imaging, EKG, home medications and prior available records. Face to face evaluation was performed by me. I have personally examined the patient and discussed assessment and plan with the IM team. I reviewed the resident note and agree with the plan with exceptions as below. Acute encephalopathy, improved Hypertensive encephalopathy Dehydration determined by physical examination Uncontrolled hypertension Hypothyroidism Abnormal TSH/T4 CT head is negative for acute changes Blood cultures showed gram-positive cocci. Follow-up identification Consulted neurology for further recommendations IV hydralazine as needed Status post IV fluids Hold levothyroxine. Touch base with endocrinology: Recommended holding levothyroxine for 2 days then resume at 88 mcg daily. Repeat thyroid function tests in 4 to 6 weeks Ordered PT evaluation
[2024-07-09 12:49] LABS: Cocci Serology, IgG Negative (Negative)
--- NOTE | 2024-07-09 13:00 | PC.SS ---
SS follow up note; Neurology rec's and cultures pending, patient is on IV ABX. Patient will discharge home when medically cleared.
[2024-07-09] MEDS: ONDANSETRON INJ 2 MG/ML INJ 2 ML 4 MG IV (15:52)
--- NOTE | 2024-07-09 23:25 | PD.NEUROCONS ---
History of Present Illness Data of Consult Requesting Physician: Raghavendra Loza MD Primary Care Provider: Alex Wayne PA-C Consult Narrative cc:: cc: Raghavendra Loza MD Meds Home Medications and Allergies Home Medications ?Medication ?Instructions ?Recorded ?Confirmed ?Type atorvastatin 20 mg tablet 20 tab PO QDAY 08/19/21 10/05/21 History calcium 600 mg (as 1 tab PO QDAY 08/19/21 10/05/21 History carbonate)-vitamin D3 5 mcg (200 unit) tablet citalopram 40 mg tablet 40 tab PO QDAY 08/19/21 10/05/21 History docusate sodium 100 mg capsule 1 cap PO QDAY 08/19/21 10/05/21 History levothyroxine 88 mcg tablet 88 tab PO QDAY 08/19/21 10/05/21 History loratadine 10 mg tablet 10 tab PO QDAY 08/19/21 10/05/21 History oxybutynin chloride 5 mg tablet 5 tab PO BID 08/19/21 10/05/21 History ergocalciferol (vitamin D2) 1,250 1 cap PO QWEEK 10/05/21 10/05/21 History mcg (50,000 unit) capsule Allergies Allergy/AdvReac Type Severity Reaction Status Date / Time No Known Allergies Allergy Verified 07/07/24 15:53 Exam - Neurology Vital Signs Temp Pulse Resp BP Pulse Ox O2 Del Method O2 Flow Rate 97.2 F 95 18 139/89 H 96 Room Air 2 07/09/24 19:55 07/09/24 19:55 07/09/24 19:55 07/09/24 19:55 07/09/24 19:55 07/09/24 19:55 07/07/24 23:00 Results Labs 07/09/24 05:21 07/09/24 05:21 Labs: Short CBC 07/09/24 Range/Units 05:21 WBC 6.9 (3.6-11.0) Thou/mm3 Hgb 11.9 L (12.0-16.0) g/dL Hct 36.6 (36.0-46.0) % Plt Count 265 (140-440) Thou/mm3 BMP 07/09/24 05:21 Sodium 142 Potassium 3.6 Chloride 106 Carbon Dioxide 27.1 BUN 9 Creatinine 0.6 Glucose 94 Calcium 9.5 Liver Function 07/09/24 Range/Units 05:21 Total Bilirubin 0.3 (0.3-1.2) mg/dL AST 12 (0-34) U/L ALT 8 L (10-49) U/L Alkaline Phosphatase 82 (46-116) U/L Albumin 3.8 (3.4-4.8) gm/dL ABG Interpretation ABG results: 07/07/24 19:55 ABG pH 7.42 ABG pCO2 41 ABG pO2 96 ABG HCO3 27 H ABG O2 Saturation 99 H ABG Base Excess 2
[2024-07-10] VITALS (9 sets, daily range): BP systolic 116–158; BP diastolic 77–102; PULSE 67–98; RESP 16–98; TEMP 36.2–37.4; O2SAT 95–98
--- NOTE | 2024-07-10 | XR_ITS ---
Examination: MRI brain without intravenous contrast. Date and time of exam: July 10, 2024 1519 hours Comparison April 19, 2023 INDICATIONS: Increasing altered mental status and confusion beginning 2 days ago Technique: Multiple axial and sagittal images of the brain obtained. Siemens high-resolution 1.5 Dulce Maria short bore scanners utilized. Sagittal sections, T1-weighted, TR 500, TE 14, are performed. Axial sections proton-density and T2-weighted have been obtained. Inversion recovery axial images, TR 9, 260, TE 111, TI 2500. Diffusion weighted images, axial sections, TR 4800, TE 128, B value 1000 Axial sections, ADC map, TR 4800, TE 128 Findings: Enlargement of the sella turcica is not present. The optic chiasm and infundibular are not remarkable. Prepontine and interpeduncular cisterns are not enlarged. There is no localized enlargement of the medulla or roxana. Fourth ventricle and cerebellar tonsils appear normal in position. No subacute area of hemorrhage density is seen. Mass in the cerebellopontine angle region is not evident. Globes symmetrical. Orbital musculature including medial lateral rectus muscles do not exhibit abnormality. Diffusion-weighted images demonstrate no focus of restricted diffusion. Increased white matter signal significant with encephalomalacia in the right parietal occipital lobe and ipsilateral right ventricular dilatation Mass effect upon the ventricular system is not identified. Impression: Negative for acute hemorrhage mass effect or midline shift No acute infarct Chronic changes right cerebral hemisphere
[2024-07-10] MEDS: ACETAMINOPHEN 325 MG TABLET 650 MG PO ×2 (01:30→19:43)
--- NOTE | 2024-07-10 05:37 | RESP.EEG ---
EEG completed and ready for review
[2024-07-10 06:11] LABS: Basophils % (Auto) 1 % (0-2.5); Eosinophils # (Auto) 0.2 Thou/mm3 (0.0-0.5); Eosinophils % (Auto) 2 % (0-10); Hematocrit 38.8 % (36.0-46.0); Hemoglobin 12.9 g/dL (12.0-16.0); Immature Granulocytes % (Auto) 0 % (0-0); Immature Granulocytes Auto 0.03 Thou/mm3 (0.00-0.00); Lymphocytes # (Auto) 1.8 Thou/mm3 (1.0-4.8); Lymphocytes % (Auto) 20 % (10-50); Mean Corpuscular HGB Conc 33.2 g/dl (31.0-37.0); Mean Corpuscular Hemoglobin 28.2 pg (25.0-35.0); Mean Corpuscular Volume 85 fL (80-100); Monocytes # (Auto) 0.5 Thou/mm3 (0.0-0.8); Monocytes % (Auto) 6 % (0-12); Neutrophils # (Auto) 6.3 Thou/mm3 (1.8-7.7); Neutrophils % (Auto) 71 % (37-80); Nucleated Red Blood Cell % 0 /100 WBC (0); Platelet Count 249 Thou/mm3 (140-440); Red Blood Count 4.57 Miln/mm3 (4.00-5.20); White Blood Count 8.8 Thou/mm3 (3.6-11.0)
[2024-07-10 07:04] LABS: Alanine Aminotransferase 8 U/L (10-49); Albumin, Serum 4.2 gm/dL (3.4-4.8); Albumin/Globulin Ratio 1.7 (1.2-2.2); Alkaline Phosphatase 99 U/L (46-116); Anion Gap 7 (7-16); Aspartate Amino Transferase 11 U/L (0-34); BUN/Creatinine Ratio 14 Ratio (12-20); Bilirubin,Total 0.5 mg/dL (0.3-1.2); Blood Urea Nitrogen 11 mg/dL (9-23); Calcium 9.3 mg/dL (8.3-10.6); Calcium (Corrected) 9.3 mg/dL (8.5-10.1); Chloride 105 mMol/L (98-107); Creatinine (Component) 0.8 mg/dL (0.6-1.3); Globulin 2.5 gm/dL (2.3-3.5); Glucose 93 mg/dL (74-106); Osmolality,Calculated 282 (275-295); Phosphorous 4.5 mg/dL (2.4-5.1); Potassium 3.6 mMol/L (3.4-5.1); Sodium 142 mMol/L (136-145); Total Protein 6.7 gm/dL (5.7-8.2); eGFR > 60 See Note
--- NOTE | 2024-07-10 11:36 | ESPR_ITS ---
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 At baseline, walks with walker and A&Ox3. 07/08: No acute overnight events noted. Seen and examined at bedside, and patient is alert and oriented x 3. She does not have any complaints at this time including nausea, vomiting, or abdominal pain. Spoke to brother who is also at bedside and updated regarding findings and current plans. He was able to contact caregiver who states that patient's levothyroxine dosage was changed approximately 2 months ago from 88 mcg to 100 mcg. 07/09: No acute overnight events noted. Seen and examined at bedside, patient is alert and oriented to self, birthdate, and place. She does state she feels nauseous, though antiemetics have not been given and no reported episodes of emesis. Otherwise, she does not have any complaints at this time. 07/10: No acute overnight events noted. Seen and examined at bedside, is alert and oriented to self, birthday, and place. She states that she has pain in her back and Garcia but otherwise does not have any other complaints. States that she would like something for anxiety prior to going to MRI. Exam Vital Signs Temp Pulse Resp BP Pulse Ox O2 Del Method O2 Flow Rate 97.7 F 67 16 136/91 H 96 Room Air 2 07/10/24 07:58 07/10/24 07:58 07/10/24 07:58 07/10/24 07:58 07/10/24 07:58 07/10/24 07:58 07/07/24 23:00 Narrative Exam General: AOx3, laying comfortably in bed, answers questions but slowly, follows some commands HEENT: NC/AT, mucous membranes moist, bilateral sclera anicteric Cardiovascular: regular rate and rhythm, S1/S2 present, no murmurs appreciated Pulmonary: clear to auscultation bilaterally, no rales/rhonchi/wheezes Abdominal: soft, non-tender, non-distended, no rebound/guarding, normal bowel sounds present Musculoskeletal: normal ROM, no peripheral edema Skin: warm and dry, intact, no rashes Neuro: CN II-XII intact, no focal deficits right upper and lower extremities Objective Labs 07/11/24 04:52 07/11/24 04:52 Labs: Laboratory Results - last 24 hr 07/08/24 07/10/24 04:59 05:10 WBC 8.8 RBC 4.57 Hgb 12.9 Hct 38.8 MCV 85 MCH 28.2 MCHC 33.2 RDW Std Deviation 41.0 Plt Count 249 Neut % (Auto) 71 Lymph % (Auto) 20 [place] % (Auto) 6 Eos % (Auto) 2 Baso % (Auto) 1 Neut # (Auto) 6.3 Lymph # (Auto) 1.8 [place] # (Auto) 0.5 Eos # (Auto) 0.2 Baso # (Auto) 0.0 Immature Gran # (Auto) 0.03 H Absolute Nucleated RBC 0.00 Immature Gran % 0 Nucleated RBC % 0 Sodium 142 Potassium 3.6 Chloride 105 Carbon Dioxide 30.0 Anion Gap 7 BUN 11 Creatinine 0.8 Estim Creat Clear Calc Not Performed. eGFR > 60 BUN/Creatinine Ratio 14 Glucose 93 Calculated Osmolality 282 Calcium 9.3 Corrected Calcium 9.3 Phosphorus 4.5 Magnesium 2.0 Total Bilirubin 0.5 AST 11 ALT 8 L Alkaline Phosphatase 99 D Total Protein 6.7 Albumin 4.2 Globulin 2.5 Albumin/Globulin Ratio 1.7 Coccidioides IgG Ab Negative ABG Interpretation ABG results: 07/07/24 19:55 ABG pH 7.42 ABG pCO2 41 ABG pO2 96 ABG HCO3 27 H ABG O2 Saturation 99 H ABG Base Excess 2 Quality Measures Quality Measures none Assessment & Plan Assessment Current Active Medications: Generic Name Dose Route Start Last Admin Trade Name Freq PRN Reason Stop Dose Admin Acetaminophen 650 mg 07/07/24 20:39 07/10/24 01:30 Acetaminophen 325 Mg Tablet PO 08/06/24 20:38 650 mg Q6H PRN Administration PAIN OR FEVER > 101 Hydralazine HCl 10 mg 07/07/24 20:32 Hydralazine Inj 20 Mg/Ml Vial IV 08/06/24 20:44 Q6H PRN SBP>160 Lorazepam 0.5 mg 07/10/24 09:30 Lorazepam 0.5 Mg Tablet PO X1 PRN anxiety Nicotine 14 mg 07/08/24 14:15 07/09/24 08:08 Nicotine Patch 14 Mg/24 Hr Patch.Td24 TOP 08/07/24 14:14 14 mg QDAY MIKHAIL Administration Ondansetron HCl 4 mg 07/07/24 20:39 07/09/24 15:52 Ondansetron Inj 2 Mg/Ml Inj 2 Ml IV 08/06/24 20:38 4 mg Q6H PRN Administration NAUSEA OR VOMITING Protocol Sennosides 2 tab 07/07/24 20:39 Senna Tablet PO 08/06/24 20:38 BID PRN CONSTIPATION Protocol Plan Carol Lucero is a 58-y/o female with PMHx HLD, hypothyroidism, 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 At baseline, walks with walker and A&Ox3. #Acute encephalopathy, hypertensive versus medication induced #Hypertensive urgency BP as high as 193/120 with no history of hypertension that may have caused nausea/vomiting and encephalopathy. Levothyroxine dosages noted to be increased 2 months ago and may have contributed to clinical picture as well given elevated T4 and low TSH. Ammonia negative, UA negative, B12 and folate wnl, U tox negative lactic acid and Pro-Alex negative without fever or leukocytosis (azithromycin discontinued). ? Neurology consulted, appreciate recommendations ? Follow-up MRI ? Follow-up EEG ? Zofran as needed #History of hypothyroidism Dosage of levothyroxine increased in last 2 months and presents with N/V and hypertensive urgency. On this admission TSH 0.16 and free T4 1.78, with previous TSH noted to be 8.55. Spoke to milking machine technician over phone, and increase in dosage of levothyroxine may be component to presentation but unlikely to be main reason. ? Curbside consult with milking machine technician, appreciate recommendations ? Recommend to restart levothyroxine after holding for 1-2 days at dosage higher than when TSH was 8 ? Levothyroxine 100 mcg ACBR #History of fall #Rhabdomyolysis ruled-out Per RN, apparently patient was found on the floor, unknown downtime. Received 1 L IV fluid bolus. ? CK within normal limits #History of COPD No wheezing at the time of evaluation, maintaining oxygen saturation well on room air. ? Consider nebulizations if respiratory distress #Hyperlipidemia ? Atorvastatin 20 mg p.o. at bedtime Hospital management: Disposition: pending neurology recommendations, MRI, EEG Fluids: not indicated Diet: regular Lines: PIV DVT prophylaxis: SCDs GI prophylaxis: not indicated Garcia: placed CODE STATUS: full code ----- Plan discussed with attending physician Dr. Dago Adair MD PGY-1 Internal Medicine Attending Provider Attestation/Addendum I reviewed labs, imaging, EKG, home medications and prior available records. Face to face evaluation was performed by me. I have personally examined the patient and discussed assessment and plan with the IM team. I reviewed the resident note and agree with the plan with exceptions as below. Acute encephalopathy, improved Hypertensive encephalopathy Dehydration determined by physical examination Uncontrolled hypertension Hypothyroidism Abnormal TSH/T4 CT head is negative for acute changes Blood cultures showed gram-positive cocci. Follow-up identification Consulted neurology for further recommendations: Recommended brain MRI and EEG IV hydralazine as needed Status post IV fluids TSH/T4 is abnormal. Touched base with endocrinology: Recommended holding levothyroxine for 2 days then resume at 88 mcg daily. Repeat thyroid function tests in 4 to 6 weeks Ordered PT evaluation
[2024-07-10] MEDS: NICOTINE PATCH 14 MG/24 HR PATCH.TD24 TOP (15:23)
[2024-07-10] MEDS: LORazepam 0.5 MG TABLET PO (15:24)
[2024-07-10] MEDS: ATORVASTATIN CALCIUM 20 MG TABLET PO (20:28)
--- NOTE | 2024-07-10 23:53 | PD.VPROG1 ---
Telemedicine visit statement This visit was conducted with the use of interactive audio and video telecommunications system that permits real time communication between the patient and the provider. Patient's verbal consent for virtual visit was obtained on 07/10/24 Documentation for date of: 07/10/24 Subjective Subjective Interval history: Patient is in MedSurg. No new symptoms reported. Back to baseline. Denies any headache dizziness nausea vomiting. Virtual exam Vital Signs Temp Pulse Resp BP Pulse Ox O2 Del Method O2 Flow Rate 97.1 F 82 17 116/77 96 Room Air 2 07/10/24 23:45 07/10/24 23:45 07/10/24 23:45 07/10/24 23:45 07/10/24 23:45 07/10/24 23:45 07/07/24 23:00 Objective Labs 07/10/24 05:10 07/10/24 05:10 Labs: Laboratory Results - last 24 hr 07/10/24 05:10 WBC 8.8 RBC 4.57 Hgb 12.9 Hct 38.8 MCV 85 MCH 28.2 MCHC 33.2 RDW Std Deviation 41.0 Plt Count 249 Neut % (Auto) 71 Lymph % (Auto) 20 [place] % (Auto) 6 Eos % (Auto) 2 Baso % (Auto) 1 Neut # (Auto) 6.3 Lymph # (Auto) 1.8 [place] # (Auto) 0.5 Eos # (Auto) 0.2 Baso # (Auto) 0.0 Immature Gran # (Auto) 0.03 H Absolute Nucleated RBC 0.00 Immature Gran % 0 Nucleated RBC % 0 Sodium 142 Potassium 3.6 Chloride 105 Carbon Dioxide 30.0 Anion Gap 7 BUN 11 Creatinine 0.8 Estim Creat Clear Calc Not Performed. eGFR > 60 BUN/Creatinine Ratio 14 Glucose 93 Calculated Osmolality 282 Calcium 9.3 Corrected Calcium 9.3 Phosphorus 4.5 Magnesium 2.0 Total Bilirubin 0.5 AST 11 ALT 8 L Alkaline Phosphatase 99 D Total Protein 6.7 Albumin 4.2 Globulin 2.5 Albumin/Globulin Ratio 1.7 ABG Interpretation ABG results: 07/07/24 19:55 ABG pH 7.42 ABG pCO2 41 ABG pO2 96 ABG HCO3 27 H ABG O2 Saturation 99 H ABG Base Excess 2 Assessment & Plan Problem List (1) Altered mental status: Status: Resolved Assessment and plan: Follow-up with EEG MRI brain showed Increased white matter signal significant with encephalomalacia in the right parietal occipital lobe and ipsilateral right ventricular dilatation (2) Vomiting: Status: Acute Assessment and plan: Resolving (3) History of brain cancer: Status: Chronic Assessment and plan: Stable without any new recurrence
[2024-07-11 04:00] VITALS: BP 92/67; PULSE 87; RESP 18; TEMP 36.5; O2SAT 95
[2024-07-11] MEDS: LEVOTHYROXINE SODIUM 100 MCG TABLET PO (05:23)
[2024-07-11] MEDS: ACETAMINOPHEN 325 MG TABLET 650 MG PO (05:23)
[2024-07-11 05:58] LABS: Basophils % (Auto) 1 % (0-2.5); Eosinophils # (Auto) 0.3 Thou/mm3 (0.0-0.5); Eosinophils % (Auto) 4 % (0-10); Hematocrit 37.6 % (36.0-46.0); Hemoglobin 12.6 g/dL (12.0-16.0); Immature Granulocytes % (Auto) 0 % (0-0); Immature Granulocytes Auto 0.01 Thou/mm3 (0.00-0.00); Lymphocytes % (Auto) 25 % (10-50); Mean Corpuscular HGB Conc 33.5 g/dl (31.0-37.0); Mean Corpuscular Volume 84 fL (80-100); Monocytes # (Auto) 0.6 Thou/mm3 (0.0-0.8); Monocytes % (Auto) 8 % (0-12); Neutrophils # (Auto) 4.9 Thou/mm3 (1.8-7.7); Neutrophils % (Auto) 62 % (37-80); Nucleated Red Blood Cell % 0 /100 WBC (0); Platelet Count 285 Thou/mm3 (140-440); RDW Standard Deviation 40.5 fL (36.4-46.3); White Blood Count 7.9 Thou/mm3 (3.6-11.0)
[2024-07-11 07:26] LABS: Alanine Aminotransferase 8 U/L (10-49); Albumin/Globulin Ratio 1.7 (1.2-2.2); Alkaline Phosphatase 91 U/L (46-116); Anion Gap 8 (7-16); Aspartate Amino Transferase 12 U/L (0-34); BUN/Creatinine Ratio 16 Ratio (12-20); Bilirubin,Total 0.4 mg/dL (0.3-1.2); Blood Urea Nitrogen 11 mg/dL (9-23); Calcium 9.3 mg/dL (8.3-10.6); Calcium (Corrected) 9.3 mg/dL (8.5-10.1); Carbon Dioxide 27.3 mMol/L (20.0-31.0); Chloride 105 mMol/L (98-107); Creatinine (Component) 0.7 mg/dL (0.6-1.3); Globulin 2.3 gm/dL (2.3-3.5); Glucose 95 mg/dL (74-106); Magnesium 1.9 mg/dL (1.6-2.6); Osmolality,Calculated 278 (275-295); Phosphorous 4.1 mg/dL (2.4-5.1); Potassium 3.4 mMol/L (3.4-5.1); Sodium 140 mMol/L (136-145); Total Protein 6.3 gm/dL (5.7-8.2); eGFR > 60 See Note
[2024-07-11 08:00] VITALS: BP 120/82; PULSE 67; RESP 18; TEMP 35.8; O2SAT 95
[2024-07-11] MEDS: NICOTINE PATCH 14 MG/24 HR PATCH.TD24 TOP (08:17)
[2024-07-11] MEDS: DOCUSATE SOD 100 MG CAPSULE PO (08:17)
--- NOTE | 2024-07-11 09:01 | PC.SS ---
SS follow up note; Neurology rec's pending, possible discharge home today.
[2024-07-11] MEDS: levETIRAcetam LIQD 500 MG/5 ML UDC PO (09:57)
--- NOTE | 2024-07-11 11:11 | ESDS_ITS ---
Planned Discharge Date 07/11/24 DS: Providers Provider Date of admission: 07/07/24 20:32 Primary care physician: Alex Wayne PA-C Admitting Provider: Domingo Bunch MD Attending Provider on Admission: Raghavendra Loza MD Consults: 07/07/24 20:39 Referral Physical Therapy Routine Comment: Physician Instructions: 07/07/24 21:12 Referral Speech Therapy Routine Comment: 07/08/24 13:43 Consult to Neurology / Tele-Neurology Routine Comment: Acute onset encephalopathy with nausea and vomitin Consulting Provider: Nate Flaherty Attending Provider on DC: Edwardo Adair MD Discharging Provider: Edwardo Adair MD DS: Diagnosis Problem List Completed Was Problem List Reviewed/Reconciled?: Yes Hospital Course Hospital Course Hospital course: Carol Lucero is a 58-y/o female with PMHx HTN, HLD, hypothyroidism, 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 Prior to presentation, patient was complaining of abdominal pain for 2 days and at baseline is alert and oriented x 3. At time of presentation, patient was encephalopathic unable to provide history but blood pressure noted to be in 200s. CT head negative for acute c hanges, CT A/P did not show any acute processes either. After the first hospital night, upon evaluation patient's mental status had greatly improved as she was alert and oriented x3 and blood pressure had remained within range. Of note, free T4 elevated and TSH low, which is likely due to overtitration of levothyroxine. Spoke to patient's brother and mercerizing range feeder who noted that patient's levothyroxine dosage was recently changed from 88 to 100 mcg in April; however, upon review of medications patient was administered 125 mcg. Spoke to urban sociologist over the phone and unlikely that change in dosages played a significant facotr in hypertensive emergency but did recommend holding levothyroxine for 2 days and restarting at 100 mcg. Neurology was consulted and recommended obtaining an MRI and EEG, both of which were consistent with underlying structural abnormalities following surgery/brain tumor and recommended to start keppra 500 mg BID for seizure prophylaxis and was cleared for discharge from neurology standpoint. Given that blood pressure has remained within range, CBC and chem panel unremarkable, and resolution of encephalopathy so will be discharged with follow-up with neurology within 2 weeks and to follow-up with PCP to obtain TSH in 4-6 weeks. Diagnoses during admission: #Acute encephalopathy, hypertensive versus medication induced #Hypertensive emergency #History of hypothyroidism #History of fall #History of COPD #Hyperlipidemia Discharge instructions: - Start taking keppra 500 mg twice daily for seizure prophylaxis - Follow-up with neurologist, Dr. Flaherty, within 2 weeks for outpatient follow-up - Your levothyroxine dosage has been changed to 100 mcg - Follow-up with your PCP within 1 week of discharge to review medications and optimize dosages - Obtain TSH within 4-6 weeks of discharge - Otherwise, continue taking all other home medications as prescribed - Return to the ED if symptoms worsen or recur Time Spent with Patient Time attestation: Total time spent providing and/or coordinating discharge services: Exam Vital Signs Temp Pulse Resp BP Pulse Ox O2 Del Method O2 Flow Rate 96.4 F L 67 18 120/82 95 Room Air 2 07/11/24 08:00 07/11/24 08:00 07/11/24 08:00 07/11/24 08:00 07/11/24 08:00 07/11/24 08:00 07/07/24 23:00 Narrative Exam General: AOx3, laying comfortably in bed, answers questions but slowly, follows some commands HEENT: NC/AT, mucous membranes moist, bilateral sclera anicteric Cardiovascular: regular rate and rhythm, S1/S2 present, no murmurs appreciated Pulmonary: clear to auscultation bilaterally, no rales/rhonchi/wheezes Abdominal: soft, non-tender, non-distended, no rebound/guarding, normal bowel sounds present Musculoskeletal: normal ROM, no peripheral edema Skin: warm and dry, intact, no rashes Neuro: CN II-XII intact, no focal deficits right upper and lower extremities Discharge Plan Plan Patient Disposition: HOME (Self Care) Disposition Comment: Stable Care Plan Goals: - Start taking keppra 500 mg twice daily for seizure prophylaxis - Follow-up with neurologist, Dr. Flaherty, within 2 weeks for outpatient follow-up - Your levothyroxine dosage has been changed to 100 mcg - Follow-up with your PCP within 1 week of discharge to review medications and optimize dosages - Obtain TSH within 4-6 weeks of discharge - Otherwise, continue taking all other home medications as prescribed - Return to the ED if symptoms worsen or recur Prescriptions/Referrals Prescriptions/Med Rec: New levothyroxine 100 mcg Tablet 100 mcg PO ACBR 30 Days Qty: 30 0RF levetiracetam [Keppra] 500 mg tablet 500 mg PO BID 30 Days Qty: 60 0RF aspirin 81 mg tablet,delayed release (DR/EC) 81 mg PO QDAY Qty: 30 2RF Continued ergocalciferol (vitamin D2) 1,250 mcg (50,000 unit) capsule 1 cap PO QWEEK Patient Comments: TAKE ONE CAPSULE BY MOUTH ONCE A WEEK VITAMIN atorvastatin 20 mg tablet 20 tab PO QDAY Patient Comments: TAKE 1 TABLET BY MOUTH EVERY DAY AT BEDTIME citalopram 40 mg tablet 40 tab PO QDAY Patient Comments: TAKE 1 TABLET BY MOUTH EVERY DAY calcium carbonate-vitamin D3 600 mg-5 mcg (200 unit) Tablet 1 tab PO QDAY docusate sodium 100 mg capsule 1 cap PO QDAY Patient Comments: TAKE 1 CAPSULE BY MOUTH TWICE A DAY oxybutynin chloride 5 mg tablet 5 tab PO BID Patient Comments: TAKE 1 TABLET BY MOUTH TWICE A DAY loratadine 10 mg tablet 10 tab PO QDAY Patient Comments: TAKE 1 TABLET BY MOUTH EVERY DAY NEEDED FOR ALLERGIES Discontinued levothyroxine 88 mcg tablet 88 tab PO QDAY Patient Comments: TAKE 1 TABLET BY MOUTH EVERY DAY IN THE MORNING (BEFORE MEAL) No Action meloxicam 15 mg tablet 15 mg PO DAILY Patient Comments: TAKE ONE TABLET BY MOUTH EVERY DAY WITH FOOD FOR ARTHRITIS FOR INFLAMMATION Referrals: Alex Wayne, ALBINO [Primary Care Provider] - Patient/Caregiver Discharge Instructions Discharge Activity: activity as tolerated Education Materials: What Is High Blood Pressure?, Hypertension Dc Print Language: [place] Citizen Stand Alone Forms: Jinny Award Info., Patient Portal Info Letter Discharge Order Discharge Orders: Discharge (Routine); Ordered 07/11/24 Ordered By: Edwardo Adair Quality Discharge Quality Measures VTE prophylaxis Attestestation Attestation I reviewed labs, imaging, EKG, home medications and prior available records. Face to face evaluation was performed by me. I have personally examined the patient and discussed assessment and plan with the IM team. I reviewed the resident note and agree with the plan with exceptions as below. Acute encephalopathy, resolved Hypertensive encephalopathy, resolved Dehydration determined by physical examination Uncontrolled hypertension, resolved Hypothyroidism Abnormal TSH/T4 CT head is negative for acute changes Blood cultures showed gram-positive cocci. Follow-up identification Consulted neurology for further recommendations: Recommended brain MRI and EEG. Brain MRI showed encephalomalacia in the setting of history of brain tumor and craniotomy. EEG was abnormal in the setting of history of brain tumor and brain surgery. Recommended starting prophylactic Keppra 5 mg twice daily. Outpatient follow-up with neurology in 2 weeks TSH/T4 is abnormal. Touched base with endocrinology: Restart levothyroxine 100 mcg daily instead of 125 mcg. Repeat thyroid function tests in 4 to 6 weeks Ordered PT evaluation: Recommended home health with caregiver Time spent is 40 minutes. More than 50% of the time was spent on patient education and coordination of care.
[2024-07-11 12:00] VITALS: BP 119/87; PULSE 81; RESP 16; TEMP 35.8; O2SAT 96
--- NOTE | 2024-07-11 12:04 | ESPR_ITS ---
Documentation for date of: 07/11/24 Subjective Subjective Interval history: Patient seen and examined at bedside. No acute overnight events. Patient's mentation is back to baseline. MRI was done which showed encephalomalacia seen and asymmetrical ventricular dilation. EEG also was done which was abnormal and showed slowing in the right temporal lobe consistent with a structural abnormality. Recommended to start Keppra 500 mg twice daily for seizure prophylaxis. Exam Vital Signs Temp Pulse Resp BP Pulse Ox O2 Del Method O2 Flow Rate 96.4 F L 67 18 120/82 95 Room Air 2 07/11/24 08:00 07/11/24 08:00 07/11/24 08:00 07/11/24 08:00 07/11/24 08:00 07/11/24 08:00 07/07/24 23:00 Objective Labs 07/11/24 04:52 07/11/24 04:52 Labs: Laboratory Results - last 24 hr 07/11/24 04:52 WBC 7.9 RBC 4.50 Hgb 12.6 Hct 37.6 MCV 84 MCH 28.0 MCHC 33.5 RDW Std Deviation 40.5 Plt Count 285 D Neut % (Auto) 62 Lymph % (Auto) 25 [place] % (Auto) 8 Eos % (Auto) 4 Baso % (Auto) 1 Neut # (Auto) 4.9 Lymph # (Auto) 2.0 [place] # (Auto) 0.6 Eos # (Auto) 0.3 Baso # (Auto) 0.0 Immature Gran # (Auto) 0.01 H Absolute Nucleated RBC 0.00 Immature Gran % 0 Nucleated RBC % 0 Sodium 140 Potassium 3.4 Chloride 105 Carbon Dioxide 27.3 Anion Gap 8 BUN 11 Creatinine 0.7 Estim Creat Clear Calc Not Performed. eGFR > 60 BUN/Creatinine Ratio 16 Glucose 95 Calculated Osmolality 278 Calcium 9.3 Corrected Calcium 9.3 Phosphorus 4.1 Magnesium 1.9 Total Bilirubin 0.4 AST 12 ALT 8 L Alkaline Phosphatase 91 Total Protein 6.3 Albumin 4.0 Globulin 2.3 Albumin/Globulin Ratio 1.7 ABG Interpretation ABG results: 07/07/24 19:55 ABG pH 7.42 ABG pCO2 41 ABG pO2 96 ABG HCO3 27 H ABG O2 Saturation 99 H ABG Base Excess 2 Quality Measures Quality Measures none Assessment & Plan Assessment Current Active Medications: Generic Name Dose Route Start Last Admin Trade Name Freq PRN Reason Stop Dose Admin Acetaminophen 650 mg 07/07/24 20:39 07/11/24 05:23 Acetaminophen 325 Mg Tablet PO 08/06/24 20:38 650 mg Q6H PRN Administration PAIN OR FEVER > 101 Atorvastatin Calcium 20 mg 07/10/24 21:00 07/10/24 20:28 Atorvastatin Calcium 20 Mg Tablet PO 08/09/24 20:59 20 mg HS MIKHAIL Administration Docusate Sodium 100 mg 07/11/24 09:00 07/11/24 08:17 Docusate Sod 100 Mg Capsule PO 08/10/24 08:59 100 mg QDAY MIKHAIL Administration Protocol Hydralazine HCl 10 mg 07/07/24 20:32 Hydralazine Inj 20 Mg/Ml Vial IV 08/06/24 20:44 Q6H PRN SBP>160 Levetiracetam 500 mg 07/11/24 09:00 07/11/24 09:57 Levetiracetam Liqd 500 Mg/5 Ml Udc PO 08/10/24 08:59 500 mg BID MIKHAIL Administration Levothyroxine Sodium 100 mcg 07/11/24 06:00 07/11/24 05:23 Levothyroxine Sodium 100 Mcg Tablet PO 08/10/24 05:59 100 mcg ACBR MIKHAIL Administration Nicotine 14 mg 07/08/24 14:15 07/11/24 08:17 Nicotine Patch 14 Mg/24 Hr Patch.Td24 TOP 08/07/24 14:14 14 mg QDAY MIKHAIL Administration Ondansetron HCl 4 mg 07/07/24 20:39 07/09/24 15:52 Ondansetron Inj 2 Mg/Ml Inj 2 Ml IV 08/06/24 20:38 4 mg Q6H PRN Administration NAUSEA OR VOMITING Protocol Sennosides 2 tab 07/07/24 20:39 Senna Tablet PO 08/06/24 20:38 BID PRN CONSTIPATION Protocol Plan Summary: The patient is a 58-year-old female with past medical history of hypertension, hyperlipidemia, hypothyroidism, 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 As part of the neurology workup, patient had a head CT done which showed no intracranial hemorrhage, mass effect or midline shift. MRI was also done which showed encephalomalacia in the right parietal occipital lobe and ipsilateral right ventricular dilation EEG was done which was abnormal with slowing in the right temporal area consistent with obstructive abnormality following surgery brain tumor. Keppra added for management of seizures and seizure prophylaxis. Plan: -Continue Keppra 500 mg twice daily for seizure prophylaxis -Continue aspirin 81mg and statin -Cleared for discharge from neurology standpoint -Follow-up outpatient within 2 weeks on discharge #Hypertensive urgency #History of hypothyroidism #History of COPD #History of hyperlipidemia -Management per primary team Case was discussed with attending physician, Dr Krystina Nelson MD PGY-1 Disclaimer: This note was dictated by speech recognition. Minor errors in wire cutter may be present due to voice recognition software. Attending Provider Attestation/Addendum I Personally have seen and examined the patient at the bedside and agree with resident's findings, assessment and plan of care. Continue with current management. Follow-up as an outpatient EEG did show abnormalities suspicious for epileptiform discharges, continue with Keppra.
== END 2024-07-11 13:30 | disposition home or self-care (01) | DRG 304 ==
LOC: SERX 18:03 → SERHOLD 21:01 → S3SX 23:30
PROVIDERS: Nurse Practitioner Family; Student in an Organized Health Care Education/Training Program; Admitting Provider Internal Medicine; Emergency Provider Emergency Medicine; PCP Physician Assistant; Visit Provider Student in an Organized Health Care Education/Training Program
DX: I16.0 Hypertensive urgency (principal); G93.41 Metabolic encephalopathy; I67.4 Hypertensive encephalopathy; I16.1 Hypertensive emergency; E78.5 Hyperlipidemia, unspecified; I10 Essential (primary) hypertension; F32.A Depression, unspecified; E03.9 Hypothyroidism, unspecified; N27.1 Small kidney, bilateral; F17.200 Nicotine dependence, unspecified, uncomplicated; G93.89 Other specified disorders of brain; E86.0 Dehydration; J44.9 Chronic obstructive pulmonary disease, unspecified; F41.9 Anxiety disorder, unspecified; F10.10 Alcohol abuse, uncomplicated; Z85.841 Personal history of malignant neoplasm of brain; R94.6 Abnormal results of thyroid function studies; Z87.81 Personal history of (healed) traumatic fracture; Z91.81 History of falling; Z79.82 Long term (current) use of aspirin; Z79.899 Other long term (current) drug therapy; Z90.710 Acquired absence of both cervix and uterus
CPT/HCPCS: 36415; 36600; 70450; 70551; 71045; 74176; 80053; 80061; 80307; 81001; 82140; 82550; 82607; 82746; 82803; 83605; 83615; 83690; 83735; 83880; 84100; 84145; 84439; 84443; 84484; 85025; 85610; 85730; 86331; 86635; 87040; 87077; 87081; 87086; 87186; 87811; 92610; 93005; 95816; 96361; 96365; 96375; 97162; 99285; J0456; J2060; J2405; J3475; J7050; J7120; A9270